=== PATIENT | male | born 1965 | race Caucasian/White ===

== ENCOUNTER 2023-04-13 12:10 | Outpatient (CLI) | payer BC, SELFPAY ==
--- NOTE | 2023-04-13 12:13 | CT_ITS ---
WS: [id number] LDCT LUNG CANCER SCREENING TECHNIQUE: Noncontrast CT of the chest with coronal and sagittal reformatted images. CLINICAL INFORMATION: NICOTINE DEPENDENCE,CIGARETTES COMPARISON: None. DLP: 77.00 mGy.cm DIvol: Mean CTDIvol: 1.40 (mGy) All CT scans at [facility] use at least one of these dose optimization techniques: automat ed exposure control; mA and/or kV adjustment per patient size (includes targeted exams where dose is matched to clinical indication); or iterative reconstruction. FINDINGS: Tiny 4 mm nodule in the lingula. Calcified granulomas LEFT lower lobe. Normal caliber thoracic aorta. No mediastinal or hilar lymphadenopathy. Normal GE junction. Normal LE FT adrenal gland. Small RIGHT adrenal adenoma. IMPRESSION: CT/CT lung screening [id number] LUNG-RADS: 2-Benign Appearance or Behavior FOLLOW UP: 12 Month: Continue annual screening with LDCT
== END 2023-04-13 12:11 | disposition home or self-care (01) ==
LOC: RAD 12:11
PROVIDERS: Family Provider Nurse Practitioner Family; PCP Physician Assistant; Visit Provider Physician Assistant
DX: F17.210 Nicotine dependence, cigarettes, uncomplicated (principal); Z12.2 Encounter for screening for malignant neoplasm of respiratory organs; J84.10 Pulmonary fibrosis, unspecified
CPT/HCPCS: 71271

== ENCOUNTER 2024-07-11 07:44 | Outpatient (CLI) | payer BC, SELFPAY ==
--- NOTE | 2024-07-11 07:48 | CT_ITS ---
WS: [id number] LDCT LUNG CANCER SCREENING TECHNIQUE: Noncontrast CT of the chest with coronal and sagittal reformatted images. CLINICAL INFORMATION: NICOTINE DEPENDENCE, CIGARETTES COMPARISON: 04/13/2023 DLP: 70.87 mGy.cm DIvol: Mean CTDIvol: 1.10 (mGy) All CT scans at [facility] use at least one of these dose optimization techniques: automated exposure control; mA and/or kV adjustment per patient size (includes targeted exams where dose is matched to clinical indication); or iterative reconstruction. FINDINGS: Stable 4 mm nodule in the lingula. 5 mm nodule RIGHT upper lobe. Calcified granulomas LEFT lower lobe. Tiny nodule RIGHT lung apex No new suspicious pulmonary parenchymal normalities. Normal caliber thoracic aorta. No mass or hilar lymphadenopathy. Coronary calcification. Focal dense calcification along the LAD. Stable RIGHT adrenal adenoma. LEFT adrenal gland is normal. CT/CT lung screening [id number] IMPRESSION: LUNG-RADS: 2S-Benign Appearance or Behavior with Significant Findings Focal punctate calcification LAD. Consider cardiology evaluation FOLLOW UP: 12 Month: Continue annual screening with LDCT
== END 2024-07-11 07:45 | disposition home or self-care (01) ==
LOC: RAD 07:45
PROVIDERS: Family Provider Nurse Practitioner Family; PCP Physician Assistant; Visit Provider Physician Assistant
DX: Z12.2 Encounter for screening for malignant neoplasm of respiratory organs (principal); F17.210 Nicotine dependence, cigarettes, uncomplicated; R91.8 Other nonspecific abnormal finding of lung field; J84.10 Pulmonary fibrosis, unspecified; I25.10 Atherosclerotic heart disease of native coronary artery without angina pectoris; I70.8 Atherosclerosis of other arteries; D35.01 Benign neoplasm of right adrenal gland
CPT/HCPCS: 71271